=== PATIENT | female | born 1960 | race Caucasian/White ===

== ENCOUNTER 2020-09-24 13:44 | Day surgery (SDC) | payer MEDICARE, OTHER ==
[~2020-09-24] VITALS: Ht 167.6 cm; Wt 60.8 kg
[2020-09-24] MEDS ORDERED: KEYTRUDA25 MG/ML IV (14:23)
[2020-09-24] MEDS ORDERED: PRIL40 PO (14:24)
[2020-09-24] MEDS ORDERED: LEVOXYL0.088 MG PO (14:24)
[2020-09-24] MEDS ORDERED: ZOLOFT 50MG50 MG PO (14:24)
[2020-09-24] MEDS ORDERED: ZOFRAN 4MG T4 MG/TAB PO (14:25)
[2020-09-24] MEDS ORDERED: MAALOX ADVANCE148 ML PO (14:26)
[2020-09-24 14:36] VITALS: BP 101/70; PULSE 101; TEMP 98.4
[2020-09-24 15:20] VITALS: BP 99/67; PULSE 91; TEMP 97.7
[2020-09-24 15:30] VITALS: BP 93/65; PULSE 89
[2020-09-24 15:45] VITALS: BP 98/70; PULSE 88
[2020-09-24 16:00] VITALS: BP 98/65; PULSE 85
[2020-09-24 16:15] VITALS: BP 92/67; PULSE 87
--- NOTE | 2020-09-24 16:35 | NUR ---
1520 Pt returns from endo procedure via cart. Pt ambulates from cart to recliner with RN assist. Monitors on and alarms set. Call light within reach. Report received from HA Mcgrath. Pt requests muffin, applesauce, and soda pop. Pt denies pain and nausea. Pt's daughter called to come be with pt. 1545 Pt taking food and drink well. No complications voiced. Daughter present and brought to pt's room. 1625 Discharge instructions given to pt and daughter. All questions answered to their satisfaction. Handed to them are a thank you card and discharge information. 1635 Pt transferred out of hospital via wheelchair and this RN to private vehicle driven by son-in-law.
== END 2020-09-24 16:35 | disposition home or self-care (01) ==
LOC: SDCO 13:44
DX: K29.30 Chronic superficial gastritis without bleeding (principal); K21.9 Gastro-esophageal reflux disease without esophagitis; C21.0 Malignant neoplasm of anus, unspecified; E03.9 Hypothyroidism, unspecified; K59.04 Chronic idiopathic constipation; K55.9 Vascular disorder of intestine, unspecified; F32.9 Major depressive disorder, single episode, unspecified; Z20.822 Contact with and (suspected) exposure to COVID-19; Z79.899 Other long term (current) drug therapy; Z79.890 Hormone replacement therapy; Z86.010 Personal history of colon polyps
CPT/HCPCS: J2405; J2704; J7030

== ENCOUNTER → 2020-09-29 | Outpatient (CLI) | payer MEDICARE, OTHER ==
[~2020-09-29] MED LIST: KEYTRUDA25 MG/ML IV; LEVOXYL0.088 MG PO; MAALOX ADVANCE148 ML PO; PRIL40 PO; ZOFRAN 4MG T4 MG/TAB PO; ZOLOFT 50MG50 MG PO
== END ==
LOC: COL.RAD 07:40
DX: K76.0 Fatty (change of) liver, not elsewhere classified (principal); K59.04 Chronic idiopathic constipation; K82.4 Cholesterolosis of gallbladder; K55.9 Vascular disorder of intestine, unspecified; Z93.3 Colostomy status

== ENCOUNTER → 2020-11-11 | Outpatient (CLI) | payer MEDICARE, OTHER | LOC: COL.RAD 14:01 | DX: R13.10 Dysphagia, unspecified (principal) ==

== ENCOUNTER 2020-12-06 12:44 | Outpatient (RCR) | payer MEDICARE, OTHER | END 2021-02-11 | disposition home or self-care (01) | LOC: WSST | DX: R13.10 Dysphagia, unspecified (principal) ==

== ENCOUNTER → 2020-12-14 | Outpatient (CLI) | payer MEDICARE | LOC: COL.RAD 08:30 | DX: R13.10 Dysphagia, unspecified (principal) ==

== ENCOUNTER 2021-03-22 11:16 | Outpatient (RCR) | payer MEDICARE, OTHER | END 2021-04-11 | disposition home or self-care (01) | LOC: WSPT | DX: I89.0 Lymphedema, not elsewhere classified (principal) ==

== ENCOUNTER → 2021-04-13 | Outpatient (CLI) | payer MEDICARE, OTHER | LOC: COL.RAD 09:16 | DX: K82.4 Cholesterolosis of gallbladder (principal) ==

== ENCOUNTER 2022-05-02 20:34 | Emergency (ER) | payer MEDICARE, OTHER ==
[~2022-05-02] VITALS: Ht 165.1 cm; Wt 64.5 kg
[2022-05-02 21:00] VITALS: TEMP 97.7
[2022-05-03 00:19] VITALS: BP 122/70; PULSE 72
== END 2022-05-03 00:19 | disposition home or self-care (01) ==
LOC: COL.ER 20:34
DX: S92.152A Displaced avulsion fracture (chip fracture) of left talus, initial encounter for closed fracture (principal); S46.911A Strain of unspecified muscle, fascia and tendon at shoulder and upper arm level, right arm, initial encounter; C79.9 Secondary malignant neoplasm of unspecified site; Z85.048 Personal history of other malignant neoplasm of rectum, rectosigmoid junction, and anus; W01.0XXA Fall on same level from slipping, tripping and stumbling without subsequent striking against object, initial encounter; Y93.01 Activity, walking, marching and hiking
CPT/HCPCS: L4386